=== PATIENT | female | born 1930 | race Caucasian/White ===

== ENCOUNTER 2017-12-20 11:43 | Observation (INO) ==
[2017-12-20] MEDS ORDERED: Sod Chloride 0.9% Inj 1,000 ML IV.SIG ONE ×2 (11:52→12:04)
--- NOTE | 2017-12-20 12:18 | ED ---
HPI General Chief complaint: Weakness Stated complaint: Evac/abd pain Related Data Home Medications Medication Instructions Recorded Confirmed albuterol sulfate [Ventolin HFA] 2 puff INHALATION Q4-6H PRN 12/20/17 12/20/17 diltiazem HCl 120 mg PO BID 12/20/17 12/20/17 metoprolol succinate 25 mg PO DAILY 12/20/17 12/20/17 pantoprazole 40 mg PO BID 12/20/17 12/20/17 Allergies Allergy/AdvReac Type Severity Reaction Status Date / Time codeine Allergy Intermediate HALLUCINATI Unverified 10/13/17 10:57 ONS vancomycin AdvReac Severe Skin Unverified 10/13/17 10:57 Discoloration PMFSH Medical History Medical History Asthma (Acute) Atrial fibrillation (Acute) Hypertension (Acute) Social History Social History Substance History: No History of Abuse Second Hand Smoke Exposure: No Smoking Status: Never smoker How Often Do You Have a Drink Containing Alcohol: Never Recent Travel in [facility] within the Last 8 Weeks: No Recent Out of Country Travel within the Last 8 Weeks: No Immunization History Tetanus Immunization: <5 Years Hx Influenza Vaccine This Season: No Course Initial Documented Vital Signs Temperature 97.9 F 12/20/17 12:03 Pulse Rate 79 12/20/17 12:03 Respiratory Rate 16 12/20/17 12:03 Blood Pressure 163/81 H 12/20/17 12:03 Pulse Oximetry 98 12/20/17 12:03 Last Documented Vital Signs Temperature 97.9 F 12/20/17 12:03 Pulse Rate 79 12/20/17 12:03 Respiratory Rate 16 12/20/17 12:03 Blood Pressure 163/81 H 12/20/17 12:03 Pulse Oximetry 98 12/20/17 12:09 Medical Decision Making ECG Data EKG Prior to Arrival: No Attestation: I personally reviewed and interpreted this ECG as follows: (EKG shows atrial fibrillation with a controlled rate of 84. She also has a right bundle branch block. No acute ischemic changes.) Discharge Plan Physicians Team ED Provider: Cornelia Gregorio Rxs /Orders / Referrals /Forms Prescriptions: No Action diltiazem HCl 120 mg Capsule,Extended Release 12 Hr 120 mg PO BID RF: 0 metoprolol succinate 25 mg Tablet Extended Release 24 Hr 25 mg PO DAILY RF: 0 albuterol sulfate [Ventolin HFA] 90 mcg/actuation Hfa Aerosol Inhaler 2 puff INHALATION Q4-6H PRN (Reason: Panic Attack(S)) RF: 0 pantoprazole [address] For Susp In Packet 40 mg PO BID RF: 0 Status ED Status: With Doctor
--- NOTE | 2017-12-20 12:58 | ED ---
HPI General Chief Complaint: Weakness Stated Complaint: Evac/abd pain Source: patient and EMS Mode of arrival: EMS Limitations: no limitations History of Present Illness MD complaint: abdominal pain Onset (ago): day(s) (3) Pain Consistency: constant Location: diffuse Severity scale (1-10): 2 Associated symptoms: diarrhea, dysuria and syncope Related Data Home Medications Medication Instructions Recorded Confirmed albuterol sulfate [Ventolin HFA] 2 puff INHALATION Q4-6H PRN 12/20/17 12/20/17 diltiazem HCl 120 mg PO BID 12/20/17 12/20/17 metoprolol succinate 25 mg PO DAILY 12/20/17 12/20/17 pantoprazole 40 mg PO BID 12/20/17 12/20/17 Allergies Allergy/AdvReac Type Severity Reaction Status Date / Time codeine Allergy Intermediate HALLUCINATI Unverified 10/13/17 10:57 ONS vancomycin AdvReac Severe Skin Unverified 10/13/17 10:57 Discoloration Review of Systems ROS: all other systems reviewed are negative [facility] Medical History Medical History Asthma (Acute) Atrial fibrillation (Acute) Hypertension (Acute) Colitis, collagenous (Acute) H/O: hysterectomy (Acute) Surgical History Surgical History History of appendectomy (Acute) History of cholecystectomy (Acute) Social History Social History Substance History: No History of Abuse Second Hand Smoke Exposure: No Smoking Status: Never smoker How Often Do You Have a Drink Containing Alcohol: Never Recent Travel in [facility] within the Last 8 Weeks: No Recent Out of Country Travel within the Last 8 Weeks: No Immunization History Tetanus Immunization: <5 Years Hx Influenza Vaccine This Season: No Exam Const General: cooperative, healthy appearing, comfortable, no acute distress, well developed, well groomed and other (elderly) Orientation: alert, awake and oriented x3 HENMT Head: normal to inspection, normocephalic and atraumatic Mouth: moist mucous membranes Eyes Conjunctivae: conjunctivae normal Sclera: sclerae normal EOM: EOM intact bilaterally Neck Neck: normal visual inspection and full ROM Chest Chest: normal inspection of the chest Resp Effort & Inspection: normal respiratory effort and able to speak in complete sentences Auscultation: clear to auscultation bilaterally Cardio Rate: regular rate Rhythm: abnormal rhythm GI Inspection: normal to inspection, scar and other (Several old surgical scars including one for an open cholecystectomy) Palpation: soft and tender Back/Spine/Pelvis Cervical Spine: cervical ROM normal Thoracic/Lumbar Spine: thoraco-lumbar ROM normal Skin General: no rashes or lesions noted and turgor normal Neuro General: alert, awake, oriented x3, moves all extremities and CN's II-XI intact bilaterally Extrem General: normal to inspection and full ROM Psych Appearance: grossly normal Mental Status: mental status grossly normal Speech and Movement: speech and movement normal Mood: congruent mood Affect: normal affect Attitude: cooperative Thought Process: normal Thought Content: normal Judgment: judgment good Course Reevaluation(s) Reevaluation #1: This patient has a history of COPD. She is requesting to use her inhaler. We will give her a DuoNeb. The nursing staff has been unable to obtain IV access. Therefore, she has not had any IV fluids. Workup has been negative. However, she had another syncopal event when we attempted to ambulate the patient. She needs to be admitted to the hospital for further evaluation of syncope and for fluid hydration. The nursing staff will try again for a peripheral IV. If that is unsuccessful, I will insert an EJ or a central line. She has not had any diarrhea since she has been here. The nursing staff was subsequently able to get a peripheral IV. Time: 13:30 Consultations Consultation #1: Dr. Browning will admit Initial Documented Vital Signs Temperature 97.9 F 12/20/17 12:03 Pulse Rate 79 12/20/17 12:03 Respiratory Rate 16 12/20/17 12:03 Blood Pressure 163/81 H 12/20/17 12:03 Pulse Oximetry 98 12/20/17 12:03 Last Documented Vital Signs Temperature 97.9 F 12/20/17 12:03 Pulse Rate 64 12/20/17 13:52 Respiratory Rate 20 12/20/17 13:52 Blood Pressure 163/81 H 12/20/17 12:03 Pulse Oximetry 98 12/20/17 12:09 Medical Decision Making MDM Narrative Medical decision making narrative: This is an elderly woman who has had several previous abdominal operations as well as a previous bowel obstruction who presents with abdominal pain. She also frequently states that she needs to urinate. A Vazquez catheter was ordered both to obtain a specimen and also to monitor eyes and nose. The Vazquez catheter quickly drained 1100 cc of urine. Her abdominal pain improved when her bladder was emptied. This is reassuring. The patient also reports that she has been having diarrhea. I have ordered a C. difficile screen as well as stool studies for an infectious cause of diarrhea. Medical Screen Exam Complete: Yes Emergency Medical Condition: Yes Differential Diagnosis Differential Diagnosis: Differential diagnosis of abdominal pain includes but is not limited to gastritis, pancreatitis, hepatitis, gastroenteritis, constipation, urinary retention, peptic ulcer disease, diverticulitis or appendicitis Lab Data Lab results reviewed: Yes I reviewed the patient's lab results. Result diagrams: 12/20/17 12:47 12/20/17 12:47 Lab Results 12/20/17 12/20/17 12/20/17 Range/Units 12:47 12:47 14:03 CBC w Diff Auto diff final WBC 6.8 (4.0-11.0) th/mm3 RBC 4.35 (4.00-5.30) mil/mm3 Hgb 12.5 (11.6-15.3) gm/dL Hct 38.8 (35.0-46.0) % MCV 89.1 (80.0-100.0) fL MCH 28.7 (27.0-34.0) pg MCHC 32.2 (32.0-36.0) % RDW 13.7 (11.6-17.2) % Plt Count 249 (150-450) th/mm3 MPV 8.1 (7.0-11.0) fL Neut % (Auto) 79.4 H (16.0-70.0) % Lymph % (Auto) 14.0 (9.0-44.0) % [place] % (Auto) 4.9 (0.0-8.0) % Eos % (Auto) 1.0 (0.0-4.0) % Baso % (Auto) 0.7 (0.0-2.0) % Neut # (Auto) 5.4 (1.8-7.7) th/mm3 Lymph # (Auto) 1.0 (1.0-4.8) th/mm3 [place] # (Auto) 0.3 (0.0-0.9) th/mm3 Eos # (Auto) 0.1 (0.0-0.4) th/mm3 Baso # (Auto) 0.0 (0.0-0.2) th/mm3 WBC Differential . Differential Comment . Sodium 140 (136-145) meq/L Potassium 4.3 (3.5-5.1) meq/L Chloride 102 (98-107) meq/L Carbon Dioxide 32.5 H (21.0-32.0) meq/L Anion Gap 6 (5-15) meq/L BUN 8 (7-18) mg/dL Creatinine 0.53 (0.50-1.00) mg/dL Estimated GFR Greater than 89 (>89) mL/min Random Glucose 98 (74-106) mg/dL Lactic Acid (0.4-2.0) mmol/L Calcium 9.0 (8.5-10.1) mg/dL Total Bilirubin 0.4 (0.2-1.0) mg/dL AST 17 (15-37) U/L ALT 22 (10-53) U/L Alkaline Phosphatase 71 (45-117) U/L Total Protein 7.0 (6.4-8.2) g/dL Albumin 3.4 (3.4-5.0) g/dL Lipase 67 L (73-393) U/L Ur Collection Type Cath Urine Color Yellow (Yellw/Straw) Urine Clarity Clear (Clear) Urine pH 7.0 (5.0-8.5) Ur Specific [place] Less/equal 1.005 (1.002-1.035) Urine Protein Negative (Neg-Trace) mg/dL Urine Glucose (UA) Negative (Negative) mg/dL Urine Ketones Negative (Negative) mg/dL Urine Occult Blood Trace (Negative) Urine Nitrate Negative (Negative) Urine Bilirubin Negative (Negative) Urine Urobilinogen 0.2 (Less than 2) mg/dL Ur Leukocyte Esterase Negative (Negative) Urine RBC 0-3 (0-3) /hpf Micro UA Comment Cath-culture not ind Urine Culture Comments Cath-cult not ind 12/20/17 Range/Units 14:20 CBC w Diff WBC (4.0-11.0) th/mm3 RBC (4.00-5.30) mil/mm3 Hgb (11.6-15.3) gm/dL Hct (35.0-46.0) % MCV (80.0-100.0) fL MCH (27.0-34.0) pg MCHC (32.0-36.0) % RDW (11.6-17.2) % Plt Count (150-450) th/mm3 MPV (7.0-11.0) fL Neut % (Auto) (16.0-70.0) % Lymph % (Auto) (9.0-44.0) % [place] % (Auto) (0.0-8.0) % Eos % (Auto) (0.0-4.0) % Baso % (Auto) (0.0-2.0) % Neut # (Auto) (1.8-7.7) th/mm3 Lymph # (Auto) (1.0-4.8) th/mm3 [place] # (Auto) (0.0-0.9) th/mm3 Eos # (Auto) (0.0-0.4) th/mm3 Baso # (Auto) (0.0-0.2) th/mm3 WBC Differential Differential Comment Sodium (136-145) meq/L Potassium (3.5-5.1) meq/L Chloride (98-107) meq/L Carbon Dioxide (21.0-32.0) meq/L Anion Gap (5-15) meq/L BUN (7-18) mg/dL Creatinine (0.50-1.00) mg/dL Estimated GFR (>89) mL/min Random Glucose (74-106) mg/dL Lactic Acid 1.1 (0.4-2.0) mmol/L Calcium (8.5-10.1) mg/dL Total Bilirubin (0.2-1.0) mg/dL AST (15-37) U/L ALT (10-53) U/L Alkaline Phosphatase (45-117) U/L Total Protein (6.4-8.2) g/dL Albumin (3.4-5.0) g/dL Lipase (73-393) U/L Ur Collection Type Urine Color (Yellw/Straw) Urine Clarity (Clear) Urine pH (5.0-8.5) Ur Specific [place] (1.002-1.035) Urine Protein (Neg-Trace) mg/dL Urine Glucose (UA) (Negative) mg/dL Urine Ketones (Negative) mg/dL Urine Occult Blood (Negative) Urine Nitrate (Negative) Urine Bilirubin (Negative) Urine Urobilinogen (Less than 2) mg/dL Ur Leukocyte Esterase (Negative) Urine RBC (0-3) /hpf Micro UA Comment Urine Culture Comments ECG Data EKG Prior to Arrival: No Attestation: I personally reviewed and interpreted this ECG as follows: (Atrial fibrillation. Controlled ventricular rate in the 80s. Right bundle branch block. No acute ischemic changes.) Discharge Plan Discharge Disposition Patient Disposition: 30 Still Patient Discharge Details Diagnosis: Syncope Physicians Team ED Provider: Cornelia Gregorio Primary Care Provider: Primary Care Katherin Jj Attending Provider: Bon Browning Status ED Status: Admitted Observation Patient
[2017-12-20 12:59] LABS: Baso % (Auto) 0.7 % (0.0-2.0); Eos # (Auto) 0.1 th/mm3 (0.0-0.4); Hematocrit 38.8 % (35.0-46.0); Hemoglobin 12.5 gm/dL (11.6-15.3); Mean Corpuscular HGB Conc 32.2 % (32.0-36.0); Mean Corpuscular Hemoglobin 28.7 pg (27.0-34.0); Mean Corpuscular Volume 89.1 fL (80.0-100.0); Mean Platelet Volume 8.1 fL (7.0-11.0); Mono # (Auto) 0.3 th/mm3 (0.0-0.9); Mono % (Auto) 4.9 % (0.0-8.0); Neut # (Auto) 5.4 th/mm3 (1.8-7.7); Neut % (Auto) 79.4 % (16.0-70.0); Platelet Count 249 th/mm3 (150-450); Red Blood Count 4.35 mil/mm3 (4.00-5.30); Red Cell Distribution Width 13.7 % (11.6-17.2); White Blood Count 6.8 th/mm3 (4.0-11.0)
[2017-12-20 13:06] LABS: Chloride 102 meq/L (98-107); Potassium 4.3 meq/L (3.5-5.1); Sodium 140 meq/L (136-145)
[2017-12-20 13:11] LABS: Albumin 3.4 g/dL (3.4-5.0); Anion Gap 6 meq/L (5-15); Blood Urea Nitrogen 8 mg/dL (7-18); Carbon Dioxide 32.5 meq/L (21.0-32.0); Glucose,Random 98 mg/dL (74-106); Lipase 67 U/L (73-393)
[2017-12-20 13:13] LABS: Alanine Aminotransferase 22 U/L (10-53); Aspartate Aminotransferase 17 U/L (15-37)
[2017-12-20 13:14] LABS: Glomerular Filtration Rate Greater Than 89 mL/min (>89)
[2017-12-20 13:16] LABS: Alkaline Phosphatase 71 U/L (45-117)
[2017-12-20 14:32] LABS: Bilirubin,Urine Negative (Negative); Clarity,Urine Clear (Clear); Color,Urine Yellow (Yellw/Straw); Glucose,Urine (UA) Negative (Negative); Leukocyte Esterase,Urine Negative (Negative); Nitrite,Urine Negative (Negative); Specific Gravity,Urine Less/Equal 1.005 (1.002-1.035); Urobilinogen,Urine 0.2 mg/dL (Less than 2)
[2017-12-20 14:41] LABS: RBC,Urine 0-3 /hpf (0-3)
[2017-12-20] MEDS ORDERED: Acetaminophen 325 MG Tablet PO PRN (15:59)
[2017-12-20] MEDS ORDERED: Enoxaparin Inj 40 MG/0.4 ML Syringe SQ SCH (17:00)
[2017-12-20] MEDS ORDERED: Warfarin Consult Pharmacy OTHER PRN (17:47)
[2017-12-20] MEDS ORDERED: Diphenoxylate/Atropine 2.5/0.025 MG Tablet PO PRN (17:51)
--- NOTE | 2017-12-20 18:03 | P.HP ---
History of Present Illness Primary Care Physician: No Primary Care Physician Chief Complaint: Syncope History of Present Illness: This is a 87-year-old female with a history of COPD, asthma, A. fib on Coumadin , hypertension, neuropathy and collagenous colitis. Family history no cancer in the family. Patient presents to the emergency department because of recurrent syncope for the past 2 days. She reports of being weak with intermittent dizziness leading to syncope. She has chronic diarrhea from her colitis and takes Lomotil. She reports that it has been worse the past few days. Denies nausea, vomiting, chest pain and shortness of breath. She has chronic left occipital headache unchanged from previous. Denies falls or injuries. She also reports of lower abdominal distention denies voiding issues but was noted to have urinary retention. She had 1100 cc urine drained after Vazquez catheter insertion. In the emergency department, she had another syncopal episode for 15 seconds when she was rolled over. No seizure activities noted. At this time, she has no complaints. She is currently receiving the second liter of NS fluid bolus. All other systems reviewed negative. EKG tracing interpreted by me with atrial fibrillation with controlled ventricular response, RBBB no significant change from previous tracing Review of Systems All other systems reviewed negative except as stated in HPI PMFSH - History History Provided By: Patient - Medical History Medical History: Medical History (Last Updated 12/20/17 @ 12:55 by Cornelia Gregorio) Asthma Atrial fibrillation Hypertension Colitis, collagenous H/O: hysterectomy - Surgical History Surgical History: Surgical History (Last Updated 12/20/17 @ 12:55 by Cornelia Gregorio) History of appendectomy History of cholecystectomy - Tobacco History Second Hand Smoke Exposure: No Tobacco Use In Past 30 Days: No Smoking Status: Never smoker - Alcohol History How Often Do You Have a Drink Containing Alcohol: Never - Substance Use History Substance History: No History of Abuse - Travel History Recent Travel in the [place] Within the Last 8 Weeks: No Recent Travel Out of the Country Within the Last 8 Weeks: No - Immunization History Tetanus Immunization: <5 Years Hx Influenza Vaccine This Season: No Medications and Allergies Active Medications: Active Medications Acetaminophen (Tylenol) 650 mg PO Q4H PRN PRN Reason: Temp > 100.4 Albuterol (Duoneb Neb (Maxi)) 1 ampul NEB QID NEB MAXI Diphenoxylate HCl/Atropine (Lomotil) 1 tab PO Q6H PRN PRN Reason: LOOSE STOOL Fluticasone Propionate (Flovent Hfa 110 Mcg Inh) 1 puff INH BID [facility] Sodium Chloride (Ns Inj) 1,000 mls @ 100 mls/hr IV.CONT .Q10H [facility] Metoprolol Succinate (Toprol Xl) 25 mg PO DAILY [facility] Non-Formulary Medication (Albuterol Sulfate) 2 puff INHALATION Q4HR PRN PRN Reason: DYSPNEA Ondansetron HCl (Zofran Inj) 4 mg IV.PUSH Q6H PRN PRN Reason: NAUSEA OR VOMITING Pantoprazole Sodium (Protonix) 40 mg PO BID [facility] Patient Medication Teaching (Coumadin Booklet) 1 each OTHER ONCE ONE Stop: 12/20/17 17:48 Pharmacy Profile Note (Coumadin Consult Pharmacy) 1 each OTHER UNSCH PRN PRN Reason: PHARMACY DOCUMENTATION Sodium Chloride (Ns Flush) 2 ml IV.FLUSH PRN PRN PRN Reason: FLUSH AFTER USING IV ACCESS Warfarin Sodium (Coumadin) 7.5 mg PO DAILY@1600 [facility] Warfarin Sodium (Coumadin) 1 mg PO DAILY@1600 [facility] Allergies Allergy/AdvReac Type Severity Reaction Status Date / Time codeine Allergy Intermediate HALLUCINATI Unverified 10/13/17 10:57 ONS vancomycin AdvReac Severe Skin Unverified 10/13/17 10:57 Discoloration Home Medications Medication Instructions Recorded Confirmed Type albuterol sulfate [Ventolin HFA] 2 puff INHALATION Q4-6H PRN 12/20/17 12/20/17 History alprazolam [Xanax] 0.37 mg PO HS 12/20/17 12/20/17 History diltiazem HCl 120 mg PO DAILY 12/20/17 12/20/17 History diphenoxylate-atropine [Lomotil] 2 tab PO Q6-8H PRN 12/20/17 12/20/17 History fluticasone [Flovent HFA] 1 puff INHALATION BID 12/20/17 12/20/17 History metoprolol succinate 25 mg PO BID 12/20/17 12/20/17 History pantoprazole 40 mg PO DAILY 12/20/17 12/20/17 History warfarin 1 mg PO DAILY 12/20/17 12/20/17 History warfarin 7.5 mg PO DAILY 12/20/17 12/20/17 History Exam Vital signs: Vital Signs 12/20/17 12:03 12/20/17 12:09 12/20/17 13:52 Temperature 97.9 F Pulse Rate 79 64 Respiratory Rate 16 20 Blood Pressure 163/81 H Pulse Oximetry 98 98 12/20/17 15:58 Temperature Pulse Rate 77 Respiratory Rate 16 Blood Pressure 182/88 H Pulse Oximetry 97 Intake & Output 12/19/17 12/20/17 12/20/17 18:59 06:59 18:59 Intake Total 1000 / 1000 Output Total 3100 / 3100 Balance -2099 / -2099 Weight 70 kg Intake: IV 1000 / 1000 Output: Urine Amount (Catheter) 3100 / 3100 Indwelling Urethral Catheter 3100 / 3100 Narrative: GENERAL: Well-developed and well-nourished looks dehydrated SKIN: Warm and dry. Ecchymosis right dorsum of the hand from IV insertion by EMS HEAD: Atraumatic. Normocephalic. EYES: Pupils equal and round. No scleral icterus. No injection or drainage. ENT: No nasal bleeding or discharge. Dry oral mucosa NECK: Trachea midline. No JVD. CARDIOVASCULAR: Irregularly irregular RESPIRATORY: No accessory muscle use. Clear to auscultation. Breath sounds equal bilaterally. GASTROINTESTINAL: Abdomen soft, non-tender, nondistended. Reducible hernia lower abdominal area. Vazquez catheter in place draining yellow urine. MUSCULOSKELETAL: Extremities without clubbing, cyanosis, or edema. No obvious deformities. NEUROLOGICAL: Awake and alert. No obvious cranial nerve deficits. Motor grossly within normal limits. Five out of 5 muscle strength in the arms and legs. Normal speech. PSYCHIATRIC: Appropriate mood and affect; insight and judgment normal. Results - Labs CBC & Chem 7: 12/20/17 12:47 12/20/17 12:47 Labs: Laboratory Results - last 24 hr 12/20/17 12/20/17 12/20/17 12:47 12:47 14:03 CBC w Diff Auto diff final WBC 6.8 RBC 4.35 Hgb 12.5 Hct 38.8 MCV 89.1 MCH 28.7 MCHC 32.2 RDW 13.7 Plt Count 249 MPV 8.1 Neut % (Auto) 79.4 H Lymph % (Auto) 14.0 [place] % (Auto) 4.9 Eos % (Auto) 1.0 Baso % (Auto) 0.7 Neut # (Auto) 5.4 Lymph # (Auto) 1.0 [place] # (Auto) 0.3 Eos # (Auto) 0.1 Baso # (Auto) 0.0 WBC Differential . Differential Comment . Sodium 140 Potassium 4.3 Chloride 102 Carbon Dioxide 32.5 H Anion Gap 6 BUN 8 Creatinine 0.53 Estimated GFR Greater than 89 Random Glucose 98 Lactic Acid Calcium 9.0 Total Bilirubin 0.4 AST 17 ALT 22 Alkaline Phosphatase 71 Total Protein 7.0 Albumin 3.4 Lipase 67 L Ur Collection Type Cath Urine Color Yellow Urine Clarity Clear Urine pH 7.0 Ur Specific [place] Less/equal 1.005 Urine Protein Negative Urine Glucose (UA) Negative Urine Ketones Negative Urine Occult Blood Trace Urine Nitrate Negative Urine Bilirubin Negative Urine Urobilinogen 0.2 Ur Leukocyte Esterase Negative Urine RBC 0-3 Micro UA Comment Cath-culture not ind Urine Culture Comments Cath-cult not ind 12/20/17 14:20 CBC w Diff WBC RBC Hgb Hct MCV MCH MCHC RDW Plt Count MPV Neut % (Auto) Lymph % (Auto) [place] % (Auto) Eos % (Auto) Baso % (Auto) Neut # (Auto) Lymph # (Auto) [place] # (Auto) Eos # (Auto) Baso # (Auto) WBC Differential Differential Comment Sodium Potassium Chloride Carbon Dioxide Anion Gap BUN Creatinine Estimated GFR Random Glucose Lactic Acid 1.1 Calcium Total Bilirubin AST ALT Alkaline Phosphatase Total Protein Albumin Lipase Ur Collection Type Urine Color Urine Clarity Urine pH Ur Specific [place] Urine Protein Urine Glucose (UA) Urine Ketones Urine Occult Blood Urine Nitrate Urine Bilirubin Urine Urobilinogen Ur Leukocyte Esterase Urine RBC Micro UA Comment Urine Culture Comments Caprini VTE Risk Assessment Caprini VTE Risk Assessment: Moderate/High Risk (score >= 2) Caprini Risk Assessment Model: Point Value = 1 Point Value = 2 Point Value = 3 Point Value = 5 Age 41-60 Minor surgery BMI > 25 kg/m2 Swollen legs Varicose veins or History of unexplained or recurrent spontaneous Oral contraceptives or hormone replacement Sepsis (< 1 month) Serious lung disease, including pneumonia (< 1 month) Abnormal pulmonary function Acute myocardial infarction Congestive heart failure (< 1 month) History of inflammatory bowel disease Medical patient at bed rest Age 61-74 Arthroscopic surgery Major open surgery (> 45 min) Laparoscopic surgery (> 45 min) Malignancy Confined to bed (> 72 hours) Immobilizing plaster cast Central venous access Age >= 75 History of VTE Family history of VTE Factor V Leiden Prothrombin [id number] Lupus anticoagulant Anticardiolipin antibodies Elevated serum homocysteine Heparin-induced thrombocytopenia Other congenital or acquired thrombophilia Stroke (< 1 month) Elective arthroplasty Hip, pelvis, or leg fracture Acute spinal cord injury (< 1 month) Prophylaxis Regimen: Total Risk Factor Score Risk Level Prophylaxis Regimen 0-1 Low Early ambulation 2 Moderate Order ONE of the following: *Sequential Compression Device (SCD) *Heparin 5000 units SQ BID 3-4 Higher Order ONE of the following medications: *Heparin 5000 units SQ TID *Enoxaparin/Lovenox 40 mg SQ daily (WT < 150 kg, CrCl > 30 mL/min) *Enoxaparin/Lovenox 30 mg SQ daily (WT < 150 kg, CrCl > 10-29 mL/min) *Enoxaparin/Lovenox 30 mg SQ BID (WT < 150 kg, CrCl > 30 mL/min) AND/OR *Sequential Compression Device (SCD) 5 or more Highest Order ONE of the following medications: *Heparin 5000 units SQ TID (Preferred with Epidurals) *Enoxaparin/Lovenox 40 mg SQ daily (WT < 150 kg, CrCl > 30 mL/min) *Enoxaparin/Lovenox 30 mg SQ daily (WT < 150 kg, CrCl > 10-29 mL/min) *Enoxaparin/Lovenox 30 mg SQ BID (WT < 150 kg, CrCl > 30 mL/min) AND *Sequential Compression Device (SCD) Assessment and Plan - Plan This is a 87-year-old female with a history of COPD, asthma, A. fib on Coumadin , hypertension, neuropathy and collagenous colitis. Patient presents to the emergency department because of recurrent syncope for the past 2 days. She reports of being weak with intermittent dizziness leading to syncope. She has chronic diarrhea from her colitis and takes Lomotil. She reports that it has been worse the past few days. She also reports of lower abdominal distention denies voiding issues but was noted to have urinary retention. She had 1100 cc urine drained after Vazquez catheter insertion. In the emergency department, she had another syncopal episode for 15 seconds when she was rolled over. No seizure activities noted. Recurrent syncope likely related to dehydration. She is neurologically intact at this time. Obtain orthostatics and 2D echo. Monitor on telemetry. Seizure and fall precautions. Dehydration from chronic diarrhea history of collagenous colitis. Patient receiving fluid bolus total of 2 L and continue NS 100 cc an hour. Continue Lomotil as needed. Follow-up stool studies Urinary retention. Urinalysis unremarkable. Vazquez care, will DC as soon as possible Prophylaxis with SCD and Coumadin. Discharge Planning: Patient is a DO NOT RESUSCITATE. Possible discharge home in 1-2 days with home care
[2017-12-20 19:51] LABS: Prothrombin Time 29.8 sec (9.8-11.6)
[2017-12-20 19:57] LABS: Creatine Kinase 134 U/L (26-192)
[2017-12-20] MEDS: Sod Chloride 0.9% Inj 1,000 ML IV.CONT SCH (20:25)
[2017-12-20] MEDS: ALPRAZolam 0.25 MG Tablet PO SCH (22:23)
--- NOTE | 2017-12-20 23:48 | ECG ---
Date Performed: 12/20/2017 Time Performed: 12:09:56 PTAGE: 87 years EKG: ATRIAL FIBRILLATION BORDERLINE LEFT AXIS DEVIATION RIGHT BUNDLE BRANCH BLOCK ABNORMAL ECG PREVIOUS TRACING : 10/13/2017 15.24 Since the previous tracing, no significant change noted DOCTOR: Dawit Davenport Interpretating Date/Time 12/20/2017 23:46:34
[2017-12-21 02:12] LABS: Creatine Kinase 99 U/L (26-192)
[2017-12-21] MEDS: Sod Chloride 0.9% Inj 1,000 ML IV.CONT SCH (05:15)
[2017-12-21 06:56] LABS: Baso # (Auto) 0.1 th/mm3 (0.0-0.2); Baso % (Auto) 1.3 % (0.0-2.0); Eos # (Auto) 0.1 th/mm3 (0.0-0.4); Eos % (Auto) 1.8 % (0.0-4.0); Hematocrit 33.8 % (35.0-46.0); Hemoglobin 10.8 gm/dL (11.6-15.3); Lymph # (Auto) 1.5 th/mm3 (1.0-4.8); Mean Corpuscular HGB Conc 31.9 % (32.0-36.0); Mean Corpuscular Hemoglobin 28.8 pg (27.0-34.0); Mean Corpuscular Volume 90.3 fL (80.0-100.0); Mean Platelet Volume 8.5 fL (7.0-11.0); Mono # (Auto) 0.5 th/mm3 (0.0-0.9); Mono % (Auto) 7.1 % (0.0-8.0); Neut # (Auto) 4.8 th/mm3 (1.8-7.7); Neut % (Auto) 68.8 % (16.0-70.0); Platelet Count 228 th/mm3 (150-450); Red Blood Count 3.75 mil/mm3 (4.00-5.30)
[2017-12-21 07:23] LABS: Chloride 105 meq/L (98-107); Potassium 3.7 meq/L (3.5-5.1); Sodium 140 meq/L (136-145)
[2017-12-21 07:43] LABS: Anion Gap 8 meq/L (5-15); Blood Urea Nitrogen 8 mg/dL (7-18); Calcium 7.8 mg/dL (8.5-10.1); Carbon Dioxide 27.4 meq/L (21.0-32.0); Glomerular Filtration Rate Greater Than 89 mL/min (>89); Glucose,Random 82 mg/dL (74-106)
[2017-12-21 07:50] LABS: INR 2.1 Ratio; Prothrombin Time 21.3 sec (9.8-11.6)
--- NOTE | 2017-12-21 12:28 | P.PN ---
Subjective Interval history: Follow-up syncope. She feels good. She has not had any bowel movement. She wants to go home but wants to see the urologist does not want to go home with a Vazquez catheter. Echocardiogram pending Physical Exam Vital signs: Vital Signs 12/20/17 13:52 12/20/17 15:58 12/20/17 16:00 Temperature 98.2 F Pulse Rate 64 77 91 H Respiratory Rate 20 16 17 Blood Pressure 182/88 H 183/86 H Pulse Oximetry 97 96 12/20/17 19:25 12/20/17 19:34 12/20/17 20:00 Temperature 96.5 F L Pulse Rate 94 H 94 H Respiratory Rate 16 Blood Pressure 149/76 H Pulse Oximetry 98 96 12/20/17 20:59 12/20/17 21:01 12/20/17 22:34 Temperature Pulse Rate 89 20 L 111 H Respiratory Rate 20 20 20 Blood Pressure 142/91 H 165/87 H Pulse Oximetry 96 12/21/17 00:00 12/21/17 03:34 12/21/17 04:00 Temperature 96.2 F L 96.7 F L Pulse Rate 104 H 87 102 H Respiratory Rate 16 18 Blood Pressure 149/65 H 139/85 Pulse Oximetry 94 L 93 L 12/21/17 07:17 12/21/17 08:00 12/21/17 11:25 Temperature 96.8 F L Pulse Rate 90 118 H 86 Respiratory Rate 12 18 16 Blood Pressure 180/110 H Pulse Oximetry 94 L Intake & Output 12/20/17 12/21/17 12/21/17 18:59 06:59 18:59 Intake Total 1000 / 1000 2200 / 2200 Output Total 3100 / 3100 2200 / 2200 Balance -2100 / -2100 0 / 0 Weight 70 kg 77.1 kg Intake: IV 1000 / 1000 2000 / 2000 NS Inj 1,000 ML @ 100 mls/hr IV 1000 / 1000 .CONT .Q10H ELDER Rx#:[id number] NS Inj 1,000 ML @ Wide Open IV. 1000 / 1000 SIG BOLUS ONE Rx#:[id number] Oral 200 / 200 Output: Urine 1500 / 1500 Urine Amount (Catheter) 3100 / 3100 700 / 700 Indwelling Urethral Catheter 3100 / 3100 700 / 700 Other: Date of Last Bowel Movement 12/20/17 Weight On Admission 70 kg Narrative: GENERAL: Well-developed and well-nourished SKIN: Warm and dry. Ecchymosis right dorsum of the hand from IV insertion by EMS CARDIOVASCULAR: Irregularly irregular RESPIRATORY: No accessory muscle use. Clear to auscultation. Breath sounds equal bilaterally. GASTROINTESTINAL: Abdomen soft, non-tender, nondistended. Reducible hernia lower abdominal area. Vazquez catheter in place draining yellow urine. MUSCULOSKELETAL: Extremities without clubbing, cyanosis, or edema. No obvious deformities. NEUROLOGICAL: Awake and alert. No obvious cranial nerve deficits. Motor grossly within normal limits. Five out of 5 muscle strength in the arms and legs. Normal speech. - Urinary Catheter Management Indwelling Urethral Catheter Cath placed during this visit: yes Reason for continuing: Acute urinary retention Insertion date: 12/20/17 Insertion time: 11:54 Results - Labs CBC & Chem 7: 12/21/17 06:15 12/21/17 06:15 Laboratory Results - last 24 hr 12/20/17 12/20/17 12/20/17 12:47 12:47 14:03 CBC w Diff Auto diff final WBC 6.8 RBC 4.35 Hgb 12.5 Hct 38.8 MCV 89.1 MCH 28.7 MCHC 32.2 RDW 13.7 Plt Count 249 MPV 8.1 Neut % (Auto) 79.4 H Lymph % (Auto) 14.0 Clare % (Auto) 4.9 Eos % (Auto) 1.0 Baso % (Auto) 0.7 Neut # (Auto) 5.4 Lymph # (Auto) 1.0 Clare # (Auto) 0.3 Eos # (Auto) 0.1 Baso # (Auto) 0.0 WBC Differential . Differential Comment . PT INR Sodium 140 Potassium 4.3 Chloride 102 Carbon Dioxide 32.5 H Anion Gap 6 BUN 8 Creatinine 0.53 Estimated GFR Greater than 89 Random Glucose 98 Lactic Acid Calcium 9.0 Total Bilirubin 0.4 AST 17 ALT 22 Alkaline Phosphatase 71 Total Creatine Kinase Troponin I Total Protein 7.0 Albumin 3.4 Lipase 67 L Ur Collection Type Cath Urine Color Yellow Urine Clarity Clear Urine pH 7.0 Ur Specific [place] Less/equal 1.005 Urine Protein Negative Urine Glucose (UA) Negative Urine Ketones Negative Urine Occult Blood Trace Urine Nitrate Negative Urine Bilirubin Negative Urine Urobilinogen 0.2 Ur Leukocyte Esterase Negative Urine RBC 0-3 Micro UA Comment Cath-culture not ind Urine Culture Comments Cath-cult not ind 12/20/17 12/20/17 12/20/17 14:20 18:30 18:30 CBC w Diff WBC RBC Hgb Hct MCV MCH MCHC RDW Plt Count MPV Neut % (Auto) Lymph % (Auto) Clare % (Auto) Eos % (Auto) Baso % (Auto) Neut # (Auto) Lymph # (Auto) [place] # (Auto) Eos # (Auto) Baso # (Auto) WBC Differential Differential Comment PT 29.8 H INR 3.0 Sodium Potassium Chloride Carbon Dioxide Anion Gap BUN Creatinine Estimated GFR Random Glucose Lactic Acid 1.1 Calcium Total Bilirubin AST ALT Alkaline Phosphatase Total Creatine Kinase 134 Troponin I Less than 0.02 L Total Protein Albumin Lipase Ur Collection Type Urine Color Urine Clarity Urine pH Ur Specific [place] Urine Protein Urine Glucose (UA) Urine Ketones Urine Occult Blood Urine Nitrate Urine Bilirubin Urine Urobilinogen Ur Leukocyte Esterase Urine RBC Micro UA Comment Urine Culture Comments 12/21/17 12/21/17 12/21/17 01:40 06:15 06:15 CBC w Diff Auto diff final WBC 7.0 RBC 3.75 L Hgb 10.8 L Hct 33.8 L MCV 90.3 MCH 28.8 MCHC 31.9 L RDW 14.0 Plt Count 228 MPV 8.5 Neut % (Auto) 68.8 Lymph % (Auto) 21.0 [place] % (Auto) 7.1 Eos % (Auto) 1.8 Baso % (Auto) 1.3 Neut # (Auto) 4.8 Lymph # (Auto) 1.5 Clare # (Auto) 0.5 Eos # (Auto) 0.1 Baso # (Auto) 0.1 WBC Differential . Differential Comment . PT INR Sodium 140 Potassium 3.7 Chloride 105 Carbon Dioxide 27.4 Anion Gap 8 BUN 8 Creatinine 0.41 L Estimated GFR Greater than 89 Random Glucose 82 Lactic Acid Calcium 7.8 L D Total Bilirubin AST ALT Alkaline Phosphatase Total Creatine Kinase 99 Troponin I Less than 0.02 L Total Protein Albumin Lipase Ur Collection Type Urine Color Urine Clarity Urine pH Ur Specific [place] Urine Protein Urine Glucose (UA) Urine Ketones Urine Occult Blood Urine Nitrate Urine Bilirubin Urine Urobilinogen Ur Leukocyte Esterase Urine RBC Micro UA Comment Urine Culture Comments 12/21/17 06:15 CBC w Diff WBC RBC Hgb Hct MCV MCH MCHC RDW Plt Count MPV Neut % (Auto) Lymph % (Auto) Clare % (Auto) Eos % (Auto) Baso % (Auto) Neut # (Auto) Lymph # (Auto) [place] # (Auto) Eos # (Auto) Baso # (Auto) WBC Differential Differential Comment PT 21.3 H INR 2.1 Sodium Potassium Chloride Carbon Dioxide Anion Gap BUN Creatinine Estimated GFR Random Glucose Lactic Acid Calcium Total Bilirubin AST ALT Alkaline Phosphatase Total Creatine Kinase Troponin I Total Protein Albumin Lipase Ur Collection Type Urine Color Urine Clarity Urine pH Ur Specific [place] Urine Protein Urine Glucose (UA) Urine Ketones Urine Occult Blood Urine Nitrate Urine Bilirubin Urine Urobilinogen Ur Leukocyte Esterase Urine RBC Micro UA Comment Urine Culture Comments - Procedures none Assessment and Plan - Plan This is a 87-year-old female with a history of COPD, asthma, A. fib on Coumadin , hypertension, neuropathy and collagenous colitis. Patient presents to the emergency department because of recurrent syncope for the past 2 days. She reports of being weak with intermittent dizziness leading to syncope. She has chronic diarrhea from her colitis and takes Lomotil. She reports that it has been worse the past few days. She also reports of lower abdominal distention denies voiding issues but was noted to have urinary retention. She had 1100 cc urine drained after Vazquez catheter insertion. In the emergency department, she had another syncopal episode for 15 seconds when she was rolled over. No seizure activities noted. Recurrent syncope likely related to dehydration. She is neurologically intact at this time. Not orthostatics pending 2D echo. Monitor on telemetry. Seizure and fall precautions. Dehydration from chronic diarrhea history of collagenous colitis. Improved discontinue IV hydration because of elevated BP. Patient has not had bowel movement since admission. Continue Lomotil as needed. Follow-up stool studies Urinary retention. Urinalysis unremarkable. Vazquez care, will DC as soon as possible. Consult DVT Prophylaxis with SCD and Coumadin. Discharge Planning: Patient is a DO NOT RESUSCITATE. Possible discharge home today with home care pending eval Discharge patient to home Condition on discharge: Improved Regular Diet as tolerated Ad Jaky activity no driving Rx written: per Follow-up with primary care physician and
--- NOTE | 2017-12-21 12:35 | P.DCO ---
- Diagnosis (1) Syncope - Physical Therapy Order: Evaluate and treat, Improve ambulation, Strength and gait training - Home Health Nursing Order: Signs/symptoms of disease process, Medication education-adverse effect, Nursing assessment with vital signs - Certification I have seen patient Abril Medina on 12/21/17. My clinical findings support the need for the requested home health care services because: Deconditioned with increased weakness I certify that my clinical findings support that this patient is homebound because: Need for psychosocial assistance (1) Syncope Qualifiers: Syncope type: unspecified Qualified Code(s): R55 - Syncope and collapse
[2017-12-21] MEDS: dilTIAZem 60 MG Tablet PO SCH (13:12)
--- NOTE | 2017-12-21 14:13 | ECHRPT ---
Indication: ATRIAL FIB/FLUTTER CONCLUSIONS Normal left ventricular size. Mild concentric left ventricular hypertrophy. The left ventricular systolic function is low normal with an estimated ejection fraction of 50%. No regional wall motion abnormalities are present. The left atrial size is [id number] dilated. The right atrial size is mildly dilated. Moderate aortic valve sclerosis is present. Mild mitral annular calcification. There is mild tricuspid valve regurgitation. The estimated pulmonary arterial pressure is 46 mmHg. BP: / HR: Rhythm: Atrial fibrillation, Atrial flut ter MEASUREMENTS (Male / Female) Normal Values Technical Quality:Fair 2D ECHO LV Diastolic Diameter PLAX 5.0 cm 4.2 - 5.9 / 3.9 - 5.3 cm LV Systolic Diameter PLAX 3.9 cm IVS Diastolic Thickness 1.1 cm 0.6 - 1.0 / 0.6 - 0.9 cm LVPW Diastolic Thickness 1.1 cm 0.6 - 1.0 / 0.6 - 0.9 cm LV Relative Wall Thickness 0.4 RV Internal Dim ED PLAX 3.5 cm LVOT Diameter 2.3 cm Aortic Root Diameter 2.9 cm LA Systolic Diameter LX 4.5 cm 3.0 - 4.0 / 2.7 - 3.8 cm M-MODE AV Cusp Separation MM 1.9 cm DOPPLER AV Peak Velocity 207.0 cm/s AV Peak Gradient 17.1 mmHg AV Mean Gradient 9.7 mmHg AV Velocity Time Integral 33.0 cm LVOT Peak Velocity 56.7 cm/s LVOT Peak Gradient 1.3 mmHg LVOT Velocity Time Integral 9.0 cm AV Area Cont Eq vti 1.1 cm AV Area Cont Eq pk 1.1 cm Mitral E Point Velocity 119.2 cm/s LV E' Lateral Velocity 16.5 cm/s Mitral E to LV E' Lateral Ratio 7.2 LV E' Septal Velocity 7.1 cm/s Mitral E to LV E' Septal Ratio 16.9 TR Peak Velocity 300.0 cm/s TR Peak Gradient 36.0 mmHg Right Atrial Pressure 10.0 mmHg Pulmonary Artery Systolic Pressu 46.0 mmHg Right Ventricular Systolic Press 46.0 mmHg PV Peak Velocity 67.7 cm/s PV Peak Gradient 1.8 mmHg FINDINGS LEFT VENTRICLE Normal left ventricular size. Mild concentric left ventricular hypertrophy. The left ventricular systolic function is low normal with an estimated ejection fraction of 50%. No regional wall motion abnormalities are present. RIGHT VENTRICLE Normal right ventricular size and systolic function. LEFT ATRIUM The left atrial size is rsya-za-sphmuzgzpu dilated. RIGHT ATRIUM The right atrial size is mildly dilated. ATRIAL SEPTUM No atrial level shunt is demonstrated by color flow Doppler interrogation. AORTA The aortic root and proximal ascending aorta are not well visualized. MITRAL VALVE Mild mitral annular calcification. AORTIC VALVE Moderate aortic valve sclerosis is present. TRICUSPID VALVE There is mild tricuspid valve regurgitation. The estimated pulmonary arterial pressure is 46 mmHg. PULMONARY VALVE No pulmonary valve regurgitation or stenosis. VESSELS The inferior vena cava is normal in size. PERICARDIUM No pericardial effusion. Kendrick Dodge MD (Electronically Signed) Final Date:21 December 2017 14:12
--- NOTE | 2017-12-21 18:12 | MB ---
cc: Chon Rosado MD DATE: 12/21/2017 REASON FOR CONSULTATION: Acute urinary retention. HISTORY OF PRESENT ILLNESS: The patient is an 87-year-old female with history of atrial fibrillation, on Coumadin, who presented to [facility] emergency room yesterday after having 2 recurrent episodes of syncope. During workup, she also reported that she has noticed a bloating feeling and her lower abdomen being slightly distended. A Vazquez catheter was inserted in the ER and approximately 1100 mL of urine was returned and her distention resolved. The patient states she has had urinary problems for a number of years, including urinary frequency and feeling that she has to urinate almost every hour. She also has occasional urinary incontinence. She denies dysuria, hematuria, or recurrent urinary tract infections. She denies history of kidney stones. Once the catheter was inserted, she felt immediate relief. She has never seen a urologist in the past. She denies history of diabetes or having a stroke in the past. Denies fevers, chills, nausea, vomiting, or flank pain at this time. REVIEW OF SYSTEMS: See HPI. All other systems reviewed, otherwise are negative. PAST MEDICAL HISTORY: Significant for asthma, atrial fibrillation, colitis, hypertension. PAST SURGICAL HISTORY: Hysterectomy, appendectomy, cholecystectomy. FAMILY HISTORY: Denies urolithiasis or genitourinary malignancies. ALLERGIES: 1. CODEINE. 2. VANCOMYCIN. CURRENT ACTIVE MEDICATIONS: Include: 1. Albuterol. 2. Xanax. 3. Coumadin. 4. Metoprolol. 5. Protonix. 6. Lomotil. 7. Flovent. SOCIAL HISTORY: Denies smoking, alcohol, or illicit drugs. PHYSICAL EXAMINATION: VITAL SIGNS: Temperature 96, pulse 90, respiratory rate 12, BP 160/86, saturating 90% on room air. GENERAL: She is oriented, but no apparent distress, pleasant and cooperative lady, appears stated age. HEENT: Head is normocephalic, atraumatic. Eyes: No sclerae icterus. Extraocular muscles intact. NECK: Supple. Trachea is midline. No JVD. SKIN: Warm and dry. No ulcers or rashes visible. LUNGS: Clear to auscultation bilaterally. No wheezes, rales, or rhonchi. HEART: Regular rate and rhythm. No murmurs, gallops, or rubs. ABDOMEN: Soft, nontender, nondistended, positive bowel sounds. GENITOURINARY: She has a Vazquez catheter draining clear yellow urine. PELVIC: Not indicated. EXTREMITIES: Nontender. No clubbing, cyanosis, or edema. NEUROLOGIC: Cranial nerves II-XII intact. Strength 5/5 in all 4 extremities. PSYCHIATRIC: Normal affect, appears to answer questions appropriately. LABORATORY DATA: White count 7.0, hemoglobin 10.8, hematocrit 33.8, platelet count 228,000. Sodium 140, potassium 3.7, chloride 105, bicarbonate 27.4, creatinine 0.41, BUN 8. Urinalysis was completely negative. IMAGING: No relevant imaging studies. ASSESSMENT AND PLAN: The patient is a 7-year-old female admitted after having a syncopal episode and was found to have acute urinary retention. Recommend continue Vazquez catheter for a minimum of 5 days, then she can undergo a void trial, which can be done on an outpatient basis. Due to her baseline urinary symptoms, she likely would benefit from a cystoscopy and urodynamics. This can be done as an outpatient as well. From a urology standpoint, she is cleared to be discharged with a Vazquez catheter. Thank you for this consult. Please call with any questions. We will be available as needed. MD JOYCE Massey/jose , 04:45 PM , 04:56 PM
[2017-12-21] MEDS: ALPRAZolam 0.25 MG Tablet PO SCH (23:07)
[2017-12-22 06:24] LABS: Baso % (Auto) 0.6 % (0.0-2.0); Eos # (Auto) 0.2 th/mm3 (0.0-0.4); Eos % (Auto) 2.6 % (0.0-4.0); Hematocrit 32.3 % (35.0-46.0); Hemoglobin 10.5 gm/dL (11.6-15.3); Lymph # (Auto) 1.2 th/mm3 (1.0-4.8); Lymph % (Auto) 20.7 % (9.0-44.0); Mean Corpuscular HGB Conc 32.6 % (32.0-36.0); Mean Corpuscular Hemoglobin 29.5 pg (27.0-34.0); Mean Corpuscular Volume 90.4 fL (80.0-100.0); Mean Platelet Volume 8.6 fL (7.0-11.0); Mono # (Auto) 0.5 th/mm3 (0.0-0.9); Mono % (Auto) 8.9 % (0.0-8.0); Neut % (Auto) 67.2 % (16.0-70.0); Platelet Count 188 th/mm3 (150-450); Red Blood Count 3.57 mil/mm3 (4.00-5.30); Red Cell Distribution Width 13.8 % (11.6-17.2); White Blood Count 5.9 th/mm3 (4.0-11.0)
[2017-12-22] MEDS: Sod Chloride 0.9% Inj 1,000 ML IV.CONT SCH (06:24)
[2017-12-22 06:43] LABS: Chloride 104 meq/L (98-107); Potassium 3.9 meq/L (3.5-5.1); Sodium 138 meq/L (136-145)
[2017-12-22 06:46] LABS: Calcium 7.7 mg/dL (8.5-10.1); INR 1.7 Ratio; Prothrombin Time 17.7 sec (9.8-11.6)
[2017-12-22 06:47] LABS: Anion Gap 9 meq/L (5-15); Blood Urea Nitrogen 8 mg/dL (7-18); Carbon Dioxide 25.3 meq/L (21.0-32.0); Glucose,Random 97 mg/dL (74-106); Magnesium 1.8 mg/dL (1.5-2.5)
[2017-12-22 06:51] LABS: Glomerular Filtration Rate Greater Than 89 mL/min (>89)
[2017-12-22] MEDS ORDERED: ALPRAZolam 0.25 MG Tablet PO SCH (09:00)
--- NOTE | 2017-12-22 10:45 | XR ---
EXAM DATE: 12/22/2017 10:40 AM EDT AGE/SEX: 87 years / Female INDICATIONS: Obstruction. Diarrhea. CLINICAL DATA: This is the patient's initial encounter. Patient reports that signs and symptoms have been present for 3 days and indicates a pain score of 5/10. MEDICAL/SURGICAL HISTORY: Chronic obstructive pulmonary disease. Asthma. Hypertension. A-fib . Colitis. Hysterectomy. Cholecystectomy. Appendectomy. COMPARISON: [facility], CHEST SINGLE AP, 10/13/2017. . FINDINGS: Supine and upright views of the abdomen were performed. The abdominal bowel gas pattern is normal. No air-fluid levels are seen. No abnormal masses, calcifications, or organomegaly is seen. The visualiz ed lower lungs are clear. No evidence of free intraperitoneal gas. The osseous structures are unremar kable. IVC filter in place. Small basilar lung effusions CONCLUSION: Nonspecific, benign abdomen appearance. Electronically signed by: Varghese Thornton MD 12/22/2017 10:43 AM EDT
[2017-12-22] MEDS: dilTIAZem 60 MG Tablet PO SCH (11:21)
--- NOTE | 2017-12-22 12:10 | P.DCO ---
- Physical Therapy Order: Evaluate and treat, Improve ambulation, Strength and gait training - Home Health Nursing Order: Medical education, Medication education-adverse effect, Nursing assessment with vital signs, Vazquez catheter maintenance (voiding trial in 4 days ) - Home Health Aide Order: To assist in: Bathing and personal care, blind lacer and meal prep - Certification I have seen patient Abril Medina on 12/22/17. My clinical findings support the need for the requested home health care services because: Deconditioned with increased weakness I certify that my clinical findings support that this patient is homebound because: Need for psychosocial assistance
--- NOTE | 2017-12-22 13:39 | P.DS ---
Date of admission: 12/20/17 15:58 Primary care physician: No Primary Care Physician Brief History from admission: This is a 87-year-old female with a history of COPD, asthma, A. fib on Coumadin , hypertension, neuropathy and collagenous colitis. Family history no cancer in the family. Patient presents to the emergency department because of recurrent syncope for the past 2 days. She reports of being weak with intermittent dizziness leading to syncope. She has chronic diarrhea from her colitis and takes Lomotil. She reports that it has been worse the past few days. Denies nausea, vomiting, chest pain and shortness of breath. She has chronic left occipital headache unchanged from previous. Denies falls or injuries. She also reports of lower abdominal distention denies voiding issues but was noted to have urinary retention. She had 1100 cc urine drained after Vazquez catheter insertion. In the emergency department, she had another syncopal episode for 15 seconds when she was rolled over. No seizure activities noted. At this time, she has no complaints. She is currently receiving the second liter of NS fluid bolus. All other systems reviewed negative. EKG tracing interpreted by me with atrial fibrillation with controlled ventricular response, RBBB no significant change from previous tracing DS: Diagnosis - Discharge Diagnosis (1) Syncope Status: Acute DS: Summary Hospital Course: This is a 87-year-old female with a history of COPD, asthma, A. fib on Coumadin , hypertension, neuropathy and collagenous colitis. Patient presents to the emergency department because of recurrent syncope for the past 2 days. She reports of being weak with intermittent dizziness leading to syncope. She has chronic diarrhea from her colitis and takes Lomotil. She reports that it has been worse the past few days. She also reports of lower abdominal distention denies voiding issues but was noted to have urinary retention. She had 1100 cc urine drained after Vazquez catheter insertion. In the emergency department, she had another syncopal episode for 15 seconds when she was rolled over. No seizure activities noted. Recurrent syncope likely related to dehydration. She is neurologically intact at this time. Not orthostatics unremarkable 2D echo. Monitor on telemetry. Seizure and fall precautions. Dehydration from chronic diarrhea history of collagenous colitis. Improved discontinue IV hydration because of elevated BP. Patient has not had bowel movement since admission but passing gas. Abdominal x-ray negative for blockage. Continue Lomotil as needed. Follow-up stool studies Urinary retention. Urinalysis unremarkable. Vazquez care, will DC as soon as possible. GI recommended to continue Vazquez catheter and start voiding trial in 4 days. She will need workup outpatient DVT Prophylaxis with SCD and Coumadin. - Time Spent with Patient Total time spent providing and/or coordinating discharge services: Greater than 30 minutes - Quality: VTE Deep Vein Thrombosis/Pulmonary Embolism Present on Admission: No Exam Vital signs: Vital Signs 12/21/17 15:34 12/21/17 16:00 12/21/17 19:43 Temperature 97.0 F L Pulse Rate 90 102 H 74 Respiratory Rate 12 17 18 Blood Pressure 142/84 H Pulse Oximetry 95 96 12/21/17 20:00 12/22/17 00:00 12/22/17 08:18 Temperature 97 F L 97 F L Pulse Rate 107 H 106 H Respiratory Rate 20 20 Blood Pressure 144/98 H 126/68 Pulse Oximetry 97 97 95 12/22/17 08:47 Temperature 98.3 F Pulse Rate 120 H Respiratory Rate 16 Blood Pressure 163/117 H Pulse Oximetry 99 Intake & Output 12/21/17 12/22/17 12/22/17 18:59 06:59 18:59 Intake Total 1911 / 1911 769 / 769 Output Total 900 / 900 1800 / 1800 Balance 1011 / 1011 -1031 / -1031 Weight 73.8 kg Intake: IV 951 / 951 49 / 49 NS Inj 1,000 ML @ 100 mls/hr IV 951 / 951 .CONT .Q10H ELDER Rx#:[id number] Oral 960 / 960 720 / 720 Output: Urine 900 / 900 1800 / 1800 Other: Date of Last Bowel Movement 12/20/17 # Bowel Movements 0 Narrative: GENERAL: Well-developed and well-nourished SKIN: Warm and dry. Ecchymosis right dorsum of the hand from IV insertion by EMS CARDIOVASCULAR: Irregularly irregular RESPIRATORY: No accessory muscle use. Clear to auscultation. Breath sounds equal bilaterally. GASTROINTESTINAL: Abdomen soft, non-tender, nondistended. Reducible hernia lower abdominal area. Vazquez catheter in place draining yellow urine. MUSCULOSKELETAL: Extremities without clubbing, cyanosis, or edema. No obvious deformities. NEUROLOGICAL: Awake and alert. No obvious cranial nerve deficits. Motor grossly within normal limits. Five out of 5 muscle strength in the arms and legs. Normal speech. Results Procedures completed during hospitalization: none Labs on day of discharge: Labs from last 24 hours 12/22/17 12/22/17 12/22/17 05:30 05:30 05:30 CBC w Diff Auto diff final WBC 5.9 RBC 3.57 L Hgb 10.5 L Hct 32.3 L MCV 90.4 MCH 29.5 MCHC 32.6 RDW 13.8 Plt Count 188 MPV 8.6 Neut % (Auto) 67.2 Lymph % (Auto) 20.7 [place] % (Auto) 8.9 H Eos % (Auto) 2.6 Baso % (Auto) 0.6 Neut # (Auto) 4.0 Lymph # (Auto) 1.2 [place] # (Auto) 0.5 Eos # (Auto) 0.2 Baso # (Auto) 0.0 WBC Differential . Differential Comment . PT 17.7 H INR 1.7 Sodium 138 Potassium 3.9 Chloride 104 Carbon Dioxide 25.3 Anion Gap 9 BUN 8 Creatinine 0.39 L Estimated GFR Greater than 89 Random Glucose 97 Calcium 7.7 L Magnesium 1.8 - Impressions ITS Impressions Abdomen X-Ray 12/22/17 11:20 CONCLUSION: Nonspecific, benign abdomen appearance. Discharge Plan - Discharge Disposition Patient Disposition: W/Home Health Service - Discharge Condition Condition: Stable - Discharge Order Discharge Orders: Discharge Order (Routine); Ordered 12/22/17 Ordered By: Bon Browning - Discharge Details Anticipated Discharge Date: 12/22/17 Discharge Comment: pending AXR - Physicians Team Primary Care Provider: Primary Care Physici,No Attending Provider: Bon Browning Other Providers: Chon Rosado MD ; [employer]
== END 2017-12-22 12:24 | disposition home health service (06) ==
LOC: PHEDA 11:43 → PHED 11:43 → PH3 18:14
PROVIDERS: ADMIT Internal Medicine; ATTEND Internal Medicine
DX: J45.909 Unspecified asthma, uncomplicated; R32 Unspecified urinary incontinence; K52.9 Noninfective gastroenteritis and colitis, unspecified; I48.91 Unspecified atrial fibrillation; Z88.5 Allergy status to narcotic agent; I45.10 Unspecified right bundle-branch block; R55 Syncope and collapse; J44.9 Chronic obstructive pulmonary disease, unspecified; Z90.49 Acquired absence of other specified parts of digestive tract; R33.9 Retention of urine, unspecified; Z79.01 Long term (current) use of anticoagulants; Z90.710 Acquired absence of both cervix and uterus; E86.0 Dehydration; I10 Essential (primary) hypertension